=== PATIENT | female | born 1955 | race Caucasian/White ===

== ENCOUNTER 2017-03-06 15:23 | Inpatient (IN) | payer SELFPAY ==
--- NOTE | ~2017-03-06 | DS ---
Discharge Summary [facility] [address] [place]. [address] NAME: PATRICK WOODS : 53 STATUS : DIS IN PAT#: [id number] AGE: 61 ADM/REG DATE : 03/06/17 MR#: [id number] REPORT SERV DATE: 03/17/17 DICTATED BY: GUNNER OLIVAREZ DATE: 03/16/17 REPORT STATUS : Draft TRANSCRIBED BY: MODL DATE: 03/16/17 ADMISSION DATE: 03/06/2017 DISCHARGE DATE: 03/16/2017 CHIEF COMPLAINT ON ADMISSION: Third-degree heart block with syncopal episodes. DISCHARGE DIAGNOSES: 1. Third-degree heart block, status post placement of single ventricular chamber pacemaker with epicardial lead via subxiphoid approach by Dr. Montes. 2. Bilateral pleural effusion likely malignant. 3. Metastatic colon cancer with liver metastasis, progressive. 4. History of chronic obstructive pulmonary disease. 5. Acute hypoxic rest respiratory failure. 6. Atrial fibrillation. HISTORY OF PRESENT ILLNESS: Please see full H and P by Dr. Salomon regarding initial presentation. HOSPITAL COURSE: 1. Third-degree heart block. The patient was seen by Cardiology. Dr. Patterson initially saw, he did attempt to place a pacemaker; however, no subclavian access could be found. Dr. Montes then subsequently was consulted and placed a single ventricular chamber pacemaker with an epicardial lead via subxiphoid process. This was placed on the . She has had no further issues. Cardiology has followed along. 2. Metastatic colon cancer with liver metastasis and occlusion of the SVC. The patient was a possible candidate for outpatient p.o. chemotherapy; however, given the decline, Oncology as well as Cardiology had discussed hospice with Ms. Woods. Subsequently, she has agreed to home with hospice, and she will be discharged today with [facility]. 3. Bilateral pleural effusions. The patient has had bilateral thoracentesis. She had the left done yesterday and the right today. This has helped with her breathing. She had the left done on the with approximately 500 mL drained and the right today, also by physician mobile sales assistant, Mahesh Rosa, with 1.2 L of fluid drained off. Cytology is pending. At this time, if she should have recurrence, a PleurX catheter would be a good option. The left pleural fluid at this point is showing no malignancy. 4. History of atrial fibrillation. Continue metoprolol per [facility]. If needed, hospice will discontinue at their discretion. 5. Acute hypoxic respiratory failure. The patient has been requiring up to 6 L; however, after bilateral thoracentesis, she is down to 3 L. Hospice can monitor to see if oxygen needs to be titrated or additional thoracentesis/PleurX catheter as needed. DISPOSITION: Home with hospice. DISCHARGE MEDICATIONS: Per hospice. Time spent on discharge including discussion with the patient, Pulmonary Medicine, and Discharge Summary [address] [address] NAME: PATRICK WOODS : 53 STATUS : DIS IN PAT#: [id number] AGE: 61 ADM/REG DATE : 03/06/17 MR#: [id number] REPORT SERV DATE: 03/17/17 DICTATED BY: GUNNER OLIVAREZ DATE: 03/16/17 REPORT STATUS : Draft TRANSCRIBED BY: LEX DATE: 03/16/17 Hospice was greater than 30 minutes. DNK/MODL Gunner Olivarez MD / [id number] CC: MD Dr. Margarita Lawson
--- NOTE | ~2017-03-06 | OP ---
Record Of Operation [facility] [address] [place]. [address] NAME: PATRICK ZHOU : 53 STATUS : ADM IN PAT#: [id number] AGE: 61 ADM/REG DATE : 03/06/17 MR#: [id number] REPORT SERV DATE: 03/15/17 DICTATED BY: DINO VELEZ DATE: 03/15/17 REPORT STATUS : Draft TRANSCRIBED BY: MODL DATE: 03/15/17 DATE OF PROCEDURE: 03/15/2017 TIME: 10:30. PROCEDURE: Ultrasound-guided left-sided thoracentesis. INDICATION: Moderate left-sided pleural effusion. PROCEDURE TOWEL SORTER: Mahesh Velez PA-C. CONSENT: Consent was obtained from the patient prior to the procedure. Diagnostic and therapeutic indications for thoracentesis were discussed as well as risks including life- threatening bleeding, pneumothorax, and even the possible necessity of chest tube placement. Benefits and alternatives were explained at length. Prior to the procedure, imaging studies were reviewed with Dr. Mina who agreed with the indication to proceed with thoracentesis. Please note, Dr. Mina was present for the procedure. PROCEDURE SUMMARY: A time out was performed verifying correct patient, procedure, site, and positioning. The patient's left chest was prepped and draped in a sterile manner using chlorhexidine scrub after the appropriate level was percussed and confirmed by ultrasound. U/S images were obtained and placed within the chart. 2% lidocaine with epinephrine was then used to anesthetize the region. A finder needle was then used to aspirate straw- colored pleural fluid. A 10-blade scalpel was then used to make a small incision. The thoracentesis catheter was then threaded into the pleural space without difficulty. The patient had 500 mL of straw-colored fluid removed. No immediate complications were noted during the procedure. A post-procedure chest x-ray is pending at the time of this dictation. The fluid will be sent for several studies. The right side of the chest was ultrasounded as well with a larger effusion noted. She is tentatively planned for PleurX catheter placement tomorrow. ESTIMATED BLOOD LOSS: Minimal. GBS/MODL Dino Velez PA-C / [id number] CC: MD Rad Lawson Mary Christy
--- NOTE | ~2017-03-06 | OP ---
Record Of Operation [facility] [address] [place]. [address] NAME: PATRICK ZHOU : 53 STATUS : ADM IN PAT#: [id number] AGE: 61 ADM/REG DATE : 03/06/17 MR#: [id number] REPORT SERV DATE: 03/09/17 DICTATED BY: BETZY PATTERSON DATE: 03/07/17 REPORT STATUS : Draft TRANSCRIBED BY: LEX DATE: 03/07/17 DATE OF PROCEDURE: 03/07/2017 The patient is a 61-year-old white female with transient complete heart block who has occluded subclavian veins. Because of this, we attempted a retrograde approach. The patient was prepped and draped in the usual sterile fashion. 1% lidocaine was infiltrated to the left groin. A Preface sheath and dilator were advanced to the right atrium. A wire was advanced to the superior vena cava. The sheath and dilator followed the wire retrograde. At 4 cm above the right atrial roof, contrast was injected. There was a small stub going off to the right axillary vein. There was no stub or nipple going to the left axillary system. Despite multiple attempts and views, no subclavian access could be found. The Preface sheath was exchanged for a short sheath. The patient was discharged to cardiac care unit in stable condition. Options include a subxiphoid single lead approach. Further discussions to be had with her oncologist and Dr. Dave. RAMIRO/LEX Betzy Patterson M.D. / [id number] CC: Senait Harmon IV [facility]
--- NOTE | ~2017-03-06 | HP ---
History And Physical [place] [id number] [facility] [place]. [address] NAME: PATRICK WOODS : 53 STATUS : ADM IN PAT#: [id number] AGE: 61 ADM/REG DATE : 03/06/17 MR#: [id number] REPORT SERV DATE: 03/07/17 DICTATED BY: JESSICA SALOMON IV DATE: 03/06/17 REPORT STATUS : Draft TRANSCRIBED BY: LEX DATE: 03/06/17 DATE OF ADMISSION: 03/06/2017 REPORT TITLE: Critical Care Admission Note BODY AFTER REPORT TITLE: Time seen is 1919 to 2019, for 1 hour critical care time. History was obtained from the records and from the patient. HISTORY OF PRESENT ILLNESS: Ms. Woods is a 61-year-old female with a history of stage IV colon cancer, coronary disease, hypertension, elevated cholesterol, clinical COPD, and clinical obstructive sleep apnea who was admitted with third-degree heart block, with syncopal episodes. The patient was in her normal state of health until 10:30 this morning, when she developed acute onset of lightheadedness with syncope. There was no seizure activity reported by the . She continued to breathe though did have somewhat sonorous breathing. This lasted for 1-2 minutes. The patient has been intermittently short of breath since that period of time. She had multiple additional episodes in transit and has had several in the emergency room. Emergency room contacted [facility] Cardiology who recommend placing the patient on a dopamine drip. On that, she had some episodes of symptoms that are non captured as the pauses; however, did have one when being evaluated by Dr. Dave with P waves though no conducted rhythm and no QRS complexes. The patient has complained of being weak. She was recently hospitalized for urinary tract infection and is completing antibiotics. There are no other new medications. She had no nausea, vomiting, or episodes occurring at the time of periods of which could have been high vagal tone. She is not on supplemental oxygen nor is she on bronchodilator medications. She currently is not having any fevers, chills, sweats, or hemoptysis. She had no reports of chest pain though did have coronary disease in the past requiring 2 stents. The patient reportedly snores and her has witnessed apneic episodes. She basically sleeps on and off all day and complains of sedentary hypersomnolence and non restorative sleep. PULMONARY HISTORY: Remarkable for no history of childhood asthma, known adult obstructive lung disease or previous pneumonia. She has a 30 pack year smoking history, and quit in 1999. 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 She is up to date on both pneumococcal vaccinations as well as the seasonal influenza vaccine. PAST MEDICAL HISTORY: 1. Colon cancer. 2. Hypertension. 3. Coronary disease. 4. Elevated cholesterol. PAST SURGICAL HISTORY: She has had 2 ports placed which were removed because of clotting. She had cardiac stents in 2010. She had a partial colectomy, total abdominal hysterectomy, tonsillectomy, and adenoidectomy, and repair of a left retinal detachment. ALLERGIES: NO KNOWN DRUG ALLERGIES. History And Physical [address] [address] NAME: PATRICK WOODS : 53 STATUS : ADM IN [facility]#: [id number] AGE: 61 ADM/REG DATE : 03/06/17 MR#: [id number] REPORT SERV DATE: 03/07/17 DICTATED BY: JESSICA SALOMON IV DATE: 03/06/17 REPORT STATUS : Draft TRANSCRIBED BY: LEX DATE: 03/06/17 CURRENT MEDICATIONS: She is on aspirin 81 mg daily, B complex vitamins daily, Ceftin 500 mg twice a day, Dilaudid 8-16 mg every 4 hours as needed, lisinopril 10 mg every morning, multivitamin daily, Nitrostat p.r.n., pravastatin 20 mg at bedtime, Compazine p.r.n., Zantac 150 mg p.r.n., Brilinta 90 mg twice a day, and chemotherapy every 7 days. SOCIAL HISTORY: Remarkable for the tobacco use as above. There is no alcohol or illicit drug use. She is and has one child. FAMILY HISTORY: Remarkable for mother with hypertension, diabetes mellitus, stroke, congestive heart failure, and chronic atrial fibrillation. Father with prostate cancer, glaucoma, and hypertension and a brother with congestive heart failure, stroke, hypertension, and coronary artery disease. REVIEW OF SYSTEMS: 14 systems reviewed. Pertinent positives as noted above. PHYSICAL EXAMINATION: GENERAL: This is an elderly female, appearing older than her stated age. Responsive though somewhat lethargic. VITAL SIGNS: At time of my evaluation, pulse was 82, temperature is 98.2, blood pressure was 122/74, respiratory rate was 16, saturations were 99% on 2 L via nasal cannula. HEENT: Normocephalic, atraumatic. Extraocular movements are intact. Pupils react to light. Sclerae and conjunctivae normal. She has nasal cannula in place. She has a Mallampati 3 airway with marked narrowing of the posterior pharyngeal space. She is edentulous. Neck is without any palpable lymphadenopathy or thyromegaly. CHEST: The patient has few basilar inspiratory crackles. No wheezes or rhonchi are noted. CARDIOVASCULAR: Jugular venous pulsations are 6 cm. She has a currently irregular S1, S2 with no clear murmur or S3. Peripheral pulses are diminished. Carotid upstrokes are 1+ with no bruit. ABDOMEN: Surgical scars are noted. Soft, nontender. There are hypoactive bowel sounds. There is no palpable hepatosplenomegaly or mass. GENITOURINARY: The patient has normal female external genitalia. Fitzpatrick catheter in place. EXTREMITIES: Demonstrate a PICC line in the left upper extremity. There is no cyanosis, clubbing, or palpable cords. Lower extremities are cool to palpation with no cyanosis. NEUROLOGIC: The patient is able to move all extremities. Strength is 5-/5 and symmetric and sensation is intact to light touch. LABORATORY DATA: Chemistry: Sodium 142, potassium 3.5, chloride 106, bicarb 24, BUN 9, creatinine 0.52, glucose of 104, calcium is 8.5, magnesium is 1.7, total protein is 6.6, and albumin is 2.4. Direct bilirubin is 0.3, indirect bilirubin is 0.6, alkaline phosphatase is 170, ALT is 24, AST is 69, troponin is 0.05. BNP is 151, hemoglobin is 13.3, hematocrit 40.6, platelet count was 195,000, white blood cell count is 6.7. Urinalysis is unremarkable. Chest x-ray demonstrates hypoventilatory film. PICC line goes to the aortic knob; however, it is stable and was felt to be in an apparent accessory superior vena cava. There is increased interstitial markings with what History And Physical [address] [address] NAME: PATRICK WOODS : 53 STATUS : ADM IN [facility]#: [id number] AGE: 61 ADM/REG DATE : 03/06/17 MR#: [id number] REPORT SERV DATE: 03/07/17 DICTATED BY: JESSICA SALOMON IV DATE: 03/06/17 REPORT STATUS : Draft TRANSCRIBED BY: LEX DATE: 03/06/17 appears to be small pleural effusions. ASSESSMENT AND PLAN: 1. Cardiovascular. The patient is currently on dopamine drip which improved symptoms; however, has had a recurrent episode while being examined by Dr. Dave. The patient will go to the laborer petroleum refinery at night for temporary pacemaker. Echocardiogram will be obtained in the morning. Serial enzymes will be obtained. 2. Respiratory. Oxygen will be titrated to maintain saturations in the 90% to 94% range. Blood gas will be obtained. Albuterol will be given as needed with old CT scan demonstrating emphysema at the bases. X-ray will be obtained in the morning. 3. Renal. We will place the patient on potassium and magnesium. Phosphate level will be obtained. Electrolyte replacement protocol has been ordered. 4. Infectious Disease. Urine is clean; however, we will check blood cultures and complete the Ceftin. Florastor will be given. 5. Gastrointestinal. Protonix to be given for gastrointestinal prophylaxis n.p.o. for the procedure tonight. 6. Hematologic. Heparin or Lovenox will be started in the morning or after procedures. 7. Endocrinologic. Thyroid functions will be obtained. 8. Neurologic. Dilaudid dose will be decreased. IV will be given as needed. Syncope appears to be cardiac with no seizures. 9. Social. The patient wishes to be a do not intubate; however, does want all of resuscitative measures. The family was present as says this is in keeping with her wishes. The patient will be admitted to the ICU. Cardiology already has seen the patient. We will continue to follow. ADRIEN/LEX Jessica Salomon IV, M.D. / [id number] CC: Jessica Salomon IV, M.D.
--- NOTE | ~2017-03-06 | OP ---
Record Of Operation [facility] [address] [place]. [address] NAME: PATRICK ZHOU : 53 STATUS : ADM IN PAT#: [id number] AGE: 61 ADM/REG DATE : 03/06/17 MR#: [id number] REPORT SERV DATE: 03/16/17 DICTATED BY: DINO VELEZ DATE: 03/16/17 REPORT STATUS : Draft TRANSCRIBED BY: MODL DATE: 03/16/17 DATE OF PROCEDURE: 03/16/2017 PROCEDURE: Ultrasound guided right-sided thoracentesis. INDICATION: [id number] right-sided pleural effusion. PROCEDURE COLLATERAL SPECIALIST: Mahesh Velez PA-C. CONSENT: Consent was obtained from the patient prior to the procedure. Diagnostic and therapeutic indications for thoracentesis were discussed as well as risks including life- threatening bleeding, pneumothorax, and even the possible necessity of chest tube placement. Benefits and alternatives were explained at length. Prior to the procedure, imaging studies were reviewed with Dr. Mina who agreed with the indication to proceed with thoracentesis. Dr. Mina was present for the procedure. PROCEDURE SUMMARY: A time out was performed verifying correct patient, procedure, site, and positioning. The patient's right chest was prepped and draped in a sterile manner using chlorhexidine scrub after the appropriate level was percussed and confirmed by ultrasound. U/S images were obtained and placed within the chart. 2% lidocaine with epinephrine was then used to anesthetize the region. A finder needle was then used to aspirate straw-colored fluid. A 10-blade scalpel was then used to make a small incision. The thoracentesis catheter was then threaded into the pleural space without difficulty. The patient had 1.2 L straw- colored fluid removed. No immediate complications were noted during the procedure. A post- procedure chest x-ray is pending at the time of this dictation. The fluid will be sent for several studies. ESTIMATED BLOOD LOSS: Minimal. GBS/MODL Dino Velez PA-C / [id number] CC: MD BARNEY Lawson,JES AKBAR
--- NOTE | ~2017-03-06 | CN ---
Consultation Report [facility] [address] [place]. [address] NAME: PATRICK ZHOU : 53 STATUS : ADM IN PAT#: [id number] AGE: 61 ADM/REG DATE : 03/06/17 MR#: [id number] REPORT SERV DATE: 03/10/17 DICTATED BY: CHEMO JAMES DATE: 03/10/17 REPORT STATUS : Draft TRANSCRIBED BY: MODL DATE: 03/10/17 CONSULTATION DATE OF CONSULTATION: 03/10/2017 CHIEF COMPLAINT: "I need a pacemaker". HISTORY OF PRESENT ILLNESS: This is a 61-year-old white female, who was diagnosed with secondary malignant neoplasm of liver and intrahepatic bile duct, on 10/14/2015, and malignant colon cancer on 01/05/2015, at that time, stage CRISTAL or T3 N2 M1a. She has been treated with chemotherapy and her medical oncologist is Dr. Milton. She has had progression of her disease despite chemotherapy and has hypercoagulability, treated with Brilinta. On 03/06/2017, she had syncopal episodes at home and was brought to the emergency department. In the emergency department, she had multiple episodes of complete heart block with ventricular asystole documented. This was treated with dopamine intravenous infusion, and she then had a temporary transvenous pacer placed by Dr. Patterson. Pacer rate is currently set at 40, and she has intrinsic sinus rhythm of 70s to 100s. She has thrombosed her central venous access and attempts were made to access the central circulation for permanent pacemaker without success. We were asked to see to provide surgical placement of single lead pacer wire and pacemaker. This was discussed with she and her family today. She has had imaging studies during this hospitalization that demonstrated progression of disease with lesions throughout the abdomen, chest, and liver. She has been seen by Dr. Batres with [facility], also by Palliative Care, and both she and her family want to be aggressive with having a pacemaker placed and she has declined palliative or hospice care as well as do not resuscitate order. PRIOR MEDICAL HISTORY: 1. Colon cancer, stage IV. 2. Coronary artery disease. 3. Hypercoagulability, has been on Brilinta. 4. Hypertension. 5. Hyperlipidemia. 6. Rosacea. 7. Chronic pain. 8. Anxiety. 9. Depression. 10.History of cataracts, status post resection. 11.History of cigarette smoking, quit in 1999. PRIOR SURGICAL HISTORY: Previous PCI with stent, status post colorectal resection, previous appendectomy, and previous hysterectomy. Prior placement of Port-A-Cath in both subclavian veins, with thrombosis and removal. Consultation Report [facility] [id number] [place]. [address] NAME: PATRICK ZHOU : 53 STATUS : ADM IN PAT#: [id number] AGE: 61 ADM/REG DATE : 03/06/17 MR#: [id number] REPORT SERV DATE: 03/10/17 DICTATED BY: CHEMO JAMES DATE: 03/10/17 REPORT STATUS : Draft TRANSCRIBED BY: LEX DATE: 03/10/17 ALLERGIES: NONE KNOWN. MEDICATIONS: Include Ceftin, Lovenox last dose at 06:00 a.m. this morning, Prinivil, Theragran tabs, Bactroban nasal ointment, Protonix, MiraLAX, Pravachol, Florastor, Stresstabs, Dilaudid p.r.n., Tylenol as needed, and electrolyte replacement therapy as needed. She is also on DuoNeb inhalers. FAMILY HISTORY: Mother with hypertension, diabetes, stroke, CHF, and chronic atrial fibrillation. Father had prostate cancer, glaucoma, hypertension. Brother with congestive heart failure, stroke, hypertension, coronary artery disease. SOCIAL HISTORY: She is , has one child, denies the use of alcohol or illicit drugs. She is a former smoker, quit in the year 1999. REVIEW OF SYSTEMS: Significant for shortness of breath, oxygen use, chronic pain, malaise, and recent syncope. PHYSICAL EXAMINATION: GENERAL: She is a pleasant elderly white female, appears older than chronological age. Her height is 162.56 cm, weight is 58.79 kg. VITAL SIGNS: As follows, blood pressure is 139/65, temperature 98.6, pulse is 80, respirations 21, saturation 95%. HEENT: Normocephalic, atraumatic. Pupils irregular, reactive to light and accommodation, sclerae clear, conjunctivae pink. She has flushed facies. NECK: Supple. No restricted range of motion. CHEST: Diminished breath sounds in the bases. She is mildly short of breath at rest. CV: Regular rate and rhythm without murmur or rub. She has palpable symmetric central pulses. She has peripheral pulses. ABDOMEN: Soft, obese, nontender with normoactive bowel sounds. /RECTAL: Declined. MUSCULOSKELETAL: No obvious deformity. No kyphosis or scoliosis. NEUROLOGIC: She is alert and oriented to day, date, place, and situation, speech is clear, fluent, and no focal deficits. DATA: Telemetry strips from the emergency department, which demonstrated ventricular asystole and complete heart block. EKG shows currently normal sinus rhythm. CT chest and abdomen and pelvis show large bilateral pleural effusions, right greater than left with compressive atelectasis involving the majority of the lower lobes of both lungs, with also consolidation atelectasis and posterior right upper lobe. There is a new 8 x 8 mm noncalcified nodule in the anterior right upper lobe since 05/11/2015, which may represent metastatic lesion or be infectious and/or inflammatory. There was also bulky mediastinal lymphadenopathy since 04/2015 likely representing metastatic disease. 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. [address] NAME: PATRICK ZHOU : 53 STATUS : ADM IN [facility]#: [id number] AGE: 61 ADM/REG DATE : 03/06/17 MR#: [id number] REPORT SERV DATE: 03/10/17 DICTATED BY: CHEMO JAMES DATE: 03/10/17 REPORT STATUS : Draft TRANSCRIBED BY: LEX DATE: 03/10/17 due to central venous occlusions or stenoses on the right, pacer lead in place entering via right common femoral vein access and multiple bilateral thyroid nodules likely related to multinodular goiter. Central venous ultrasound on the showed chronic thrombus occluding the right internal jugular vein, partial occlusion of the right subclavian vein and right axillary vein with chronic thrombus and possible acute thrombus superimposed on chronic thrombus. Echocardiogram dated 03/07/[address] Horne shows ejection fraction estimated at 55% with normal right ventricular and left ventricular sizes and systolic function. There is normal left atrial size, no significant valvulopathy and trace pericardial effusion. CURRENT LABORATORY DATA: Sodium is 147, potassium 3.4, chloride 112, CO2 of 25, BUN 8, creatinine 0.49. CBC shows WBCs of 7000, hemoglobin 12.5g, hematocrit 38.4%, platelets 191,000. IMPRESSION: 1. Intermittent complete heart block with ventricular asystole, documented at admission. 2. Lack of central venous access despite attempts at placement of permanent pacer lead. 3. Hypercoagulability. 4. Stage IV metastatic colon cancer. PLAN: Discussed with the patient and her family at length today, and she wants to proceed with a pacemaker placement and is willing to undergo surgery for placement of pacer lead via either a subxiphoid approach or left thoracoscopy or thoracotomy. 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 Patterson, his view would be towards a palliative approach with a single lead if possible, however, if left thoracoscopic or thoracotomy approach becomes necessary, then could consider dual-chamber pacer lead placement. I talked at length with the patient and her family today regarding the surgery, usual perioperative course, and risks inherent to the procedure, which include risks of bleeding, infection, pneumonia, blood transfusions, further damage to liver or lungs, wound nonhealing, pain, and possible prolonged hospitalization. She understands that her oncologist has given her a prognosis of two to three months to live, and despite this, we would like to proceed with aggressive care and placement of pacemaker. I have scheduled surgery for pacemaker and lead implantation this afternoon by Dr. Montes. We appreciate the opportunity to participate in her care. HESHAM/LEX Chemo James N.P. / [id number] Consultation Report [address] [address] NAME: PATRICK ZHOU : 53 STATUS : ADM IN [facility]#: [id number] AGE: 61 ADM/REG DATE : 03/06/17 MR#: [id number] REPORT SERV DATE: 03/10/17 DICTATED BY: CHEMO JAMES DATE: 03/10/17 REPORT STATUS : Draft TRANSCRIBED BY: MODZack DATE: 03/10/17 CC: Senait Harmon IV
--- NOTE | ~2017-03-06 | OP ---
Record Of Operation [facility] [address] [place]. [address] NAME: PATRICK ZHOU : 53 STATUS : ADM IN PAT#: [id number] AGE: 61 ADM/REG DATE : 03/06/17 MR#: [id number] REPORT SERV DATE: 03/11/17 DICTATED BY: DANK MONTES DATE: 03/11/17 REPORT STATUS : Draft TRANSCRIBED BY: MODL DATE: 03/11/17 DATE OF PROCEDURE: 03/11/2017 DIAGNOSIS: 1. Third degree AV block with symptomatic bradycardia. 2. 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 PROCEDURE PERFORMED: 1. Placement of single ventricular chamber pacemaker. 2. Placement of epicardial lead via the subxiphoid approach. SURGEON: Dank Montes M.D. CATALYTIC CASE OPERATOR: Williams Ahmadi. ANESTHESIA: General. HULL MOLDER: Dr. Michael Patterson. INDICATIONS: This is a 61-year-old female with stage IV colon cancer and multiple metastatic lesions in the liver and mediastinum. She has symptoms of SVC syndrome. She also has metastatic disease in the lung. She recently had a syncopal episode at home and came to the emergency room on the of this month. In the emergency room, she was noted to have episodes of complete third-degree AV block with severe bradycardia. She had a temporary transvenous pacemaker placed at that time. She was placed in the unit. The patient had been on Brilinta for hypercoagulability related to tumor. Dr. Patterson attempted to place a transvenous pacemaker, I believe, on the of this month but could not pass through the obstruction and the SVC. We were asked to consider placement of an epicardial pacing lead with single chamber pacemaker. Palliative Care was consulted; however, the patient desired full resuscitative measures and pacemaker "because she had things to do before ." We discussed possible epicardial pacemaker placement through a subxiphoid approach and after discussing the operations, indications, and risks, they wished to proceed. FINDINGS AT OPERATION: 1. The pacemaker was a Medtronic Adapta ADSRO1 serial number [id number]. 2. The ventricular lead was a Medtronic model #4965. Serial number [id number]. R-waves measured were 3.5 mV. Impedance was 503 ohms. Minimal voltage at capture is 0.7 V. 3. Pacemaker was placed in the subcutaneous space above the left side of the rectus muscle. 4. Temporary transvenous pacemaker through the end of the case. PATHOLOGIC SPECIMENS: None. DESCRIPTION OF PROCEDURE: The patient was brought to the operating suite. General anesthesia was induced. The airway secured with an endotracheal tube. Abdomen and chest were prepped with Hibiclens and ChloraPrep and draped with Ioban and sterile sheets. Midline Record Of Operation [facility] [id number] [place]. [address] NAME: PATRICK ZHOU : 53 STATUS : ADM IN PAT#: [id number] AGE: 61 ADM/REG DATE : 03/06/17 MR#: [id number] REPORT SERV DATE: 03/11/17 DICTATED BY: DANK MONTES DATE: 03/11/17 REPORT STATUS : Draft TRANSCRIBED BY: LEX DATE: 03/11/17 upper abdominal incision was made directly over the xiphoid for approximately 6 cm and carried through the subcutaneous tissue down to the level of the xiphoid. Linea alba was divided for several centimeters below the xiphoid. We then went between the xiphoid and right costal margin. The pericardial fat was swept aside. The pericardium was identified. A small incision was made in the pericardium, and retraction sutures were placed. Then an epicardial lead was sewn to the heart with 6-0 Prolene sutures. This was tested as described in the findings. With acceptable thresholds for the pacing lead, a subcutaneous pocket was made above the left side of the rectus muscle. The pacemaker lead was connected to the pacemaker which was implanted in the pocket and secured to the rectus fascia with a silk suture. The wound was then irrigated clear with saline and hemostasis obtained. The wound was closed with absorbable sutures. The subcutaneous tissue was closed and skin closed in a subcuticular fashion. Intercostal block and field block performed using the TAP solution. A 19 mm Shane drain was placed in the pericardial space and brought through a separate stab incision prior to closure. The patient tolerated the procedure well. There were no complications. Sponge and needle counts were correct. DISPOSITION: She was awakened and extubated in the operating room and taken to the recovery room in stable condition. Temporary transvenous pacemaker was removed in the operating suite. TIMMY/LEX Dank Montes M.D. / [id number] CC: Senait Harmon IV, M.D.
--- NOTE | ~2017-03-06 | CN ---
Consultation Report [facility] [address] [place]. [address] NAME: PATRICK ZHOU : 53 STATUS : ADM IN PAT#: [id number] AGE: 61 ADM/REG DATE : 03/06/17 MR#: [id number] REPORT SERV DATE: 03/07/17 DICTATED BY: BETZY PATTERSON DATE: 03/07/17 REPORT STATUS : Draft TRANSCRIBED BY: MODL DATE: 03/07/17 EP CONSULTATION DATE OF CONSULTATION: INDICATION: Third-degree AV block. HISTORY: The patient is a 61-year-old white female who has had recurrent episodes of syncope over the past two days. She passed out while her sister was taking her to the emergency room and again passed out in the ER. She was initially started on dopamine and had a temporary pacing wire placed 03/06 at 9:[address] Barbosa. She has been stable since that time. The patient has had no prior cardiac history. She does have dyslipidemia and hypertension. CURRENT HOME MEDICATIONS: Aspirin 81 a day, B Complex vitamins daily, Ceftin 500 b.i.d. x5 days, Dilaudid 8 mg q.4 p.r.n., lisinopril 10 q.a.m., multivitamins daily, nitroglycerin 0.4 p.r.n., pravastatin 20 at bedtime, prochlorperazine 10 q.6 p.r.n., Zantac 150 p.r.n., ticagrelor 90 b.i.d., and chemotherapy one dose every seven days administered by Dr. Milton in [facility]. ALLERGIES OR INTOLERANCES: None known. SOCIAL HISTORY: Former smoker. Does not drink alcohol. She had a 30-pack year smoking history, quit in 1999. 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 FAMILY HISTORY: Negative for coronary artery disease at a young age. Maternal grandmother at age 60 with cancer of the lymph nodes. Maternal grandfather at age 80 of coronary artery disease. Paternal grandmother at age 80 with diabetes. Her paternal grandfather had also had congestive heart failure. PAST MEDICAL HISTORY/REVIEW OF SYSTEMS: Recently diagnosed with stage IV colon cancer for which she has been undergoing chemotherapy for the past 18 months. A week ago she was seen at [facility] with a UTI, given IV fluids, and discharged to home. She had felt fatigued and then had the syncopal events as documented above. She has a history of coronary artery disease with previous stenting in 2010, hyperlipidemia, stage IV colon cancer as noted above. She has had Port-A-Cath in both subclavian veins, which have malfunctioned and been surgically removed. It is not clear as to whether not the subclavian veins have been occluded, although she does not report any swelling in her arms. PAST SURGICAL HISTORY: She has had a partial colectomy, ANTONIA, tonsillectomy and adenoidectomy. She has had repair of a left retinal detachment in the past. Her Consultation Report [facility] [id number] [facility] [place]. [address] NAME: PATRICK ZHOU : 53 STATUS : ADM IN [facility]#: [id number] AGE: 61 ADM/REG DATE : 03/06/17 MR#: [id number] REPORT SERV DATE: 03/07/17 DICTATED BY: BETZY PATTERSON DATE: 03/07/17 REPORT STATUS : Draft TRANSCRIBED BY: LEX DATE: 03/07/17 adenocarcinoma had a KRAS mutation. The sigmoid was resected by Dr. Chamorro. She had 4/11 nodes positive and negative margins. On 11/28/2014, she was noted to have a 4 x 5 cm liver mass, which tested positive for metastatic CRC. She had been on FOLFOX, Avastin, but this was stopped due to neuropathy. Hilar and mediastinal adenopathy has been stable. Oxaliplatin was discontinued on 05/13/2015 due to neuropathy. She has been on Neurontin since then. She has a history of Parkinson syndrome, is on carbidopa-levodopa. She has normal renal function. She has undergone hepatic embolization with Y-[address] Monsalve. She had a PICC line placed 12/28/2016. PHYSICAL EXAMINATION: GENERAL: Pleasant, alert 61-year-old white female. VITAL SIGNS: On admission, blood pressure 146/67, pulse after treatment was 95 and regular, respirations 14. SKIN: No xanthelasmas. HEENT: She is normocephalic. There is no pallor. Sclerae white. JVD is not elevated. CHEST: There are no crackles. CARDIAC: S1 normal, S2 physiologic. No murmurs or gallops. ABDOMEN: Without tenderness. EXTREMITIES: Without edema. Pulses are +2 and symmetric. NEUROLOGIC: No focal deficits. MUSCULOSKELETAL: No kyphosis. LABORATORY DATA: Potassium 3.1, BUN 6, creatinine 0.43, magnesium 2.1. Troponin 0.06, initially 0.08. TSH 0.236 with normal free T4. BNP 151. White count 9.3, hemoglobin 13.5, platelets 199,000. Baseline ECG. Rhythm strips show intermittent complete heart block with asystole. During conducted complexes, there is no evidence for acute repolarization changes. IMPRESSION: A 61-year-old white female with multiple medical issues, now presenting with complete heart block, possible subclavian occlusion based on history. She will need permanent pacemaker support. I have discussed risks and benefits with her and will speak with her . RAMIRO/LEX Betzy Patterson M.D. / [id number] CC: Epifanio Salomon IV, M.D. BARNEYJES Jeong Consultation Report [address] [place]. [address] NAME: PATRICK ZHOU : 53 STATUS : ADM IN [facility]#: [id number] AGE: 61 ADM/REG DATE : 03/06/17 MR#: [id number] REPORT SERV DATE: 03/07/17 DICTATED BY: BETZY PATTERSON DATE: 03/07/17 REPORT STATUS : Draft TRANSCRIBED BY: LEX DATE: 03/07/17 [facility]
--- NOTE | ~2017-03-06 | CN ---
Consultation Report [facility] [address] [place]. [address] NAME: PATRICK WOODS : 53 STATUS : ADM IN PAT#: [id number] AGE: 61 ADM/REG DATE : 03/06/17 MR#: [id number] REPORT SERV DATE: 03/07/17 DICTATED BY: EFRAIN SHEARER DATE: 03/06/17 REPORT STATUS : Draft TRANSCRIBED BY: MODL DATE: 03/06/17 DATE OF CONSULTATION: 03/06/2017 CHIEF COMPLAINT: Syncope, third-degree AV block. HISTORY OF PRESENT ILLNESS: Ms. Woods is a 61-year-old woman with a history of coronary disease and prior stents in 2010. Uncertain the details of her cardiovascular history. She is still on Brilinta. Most importantly, recently, she was diagnosed with stage IV colon cancer, undergoing chemotherapy for about a year and a half. She was admitted last week to [facility] with a UTI, given IV fluids, and was discharged on Monday. She continued to feel poorly. She was fatigued. She had no energy. Today, she had a syncopal spell witnessed by her and was brought to the emergency room at [facility]. In the emergency room on telemetry, she had multiple episodes of third-degree heart block with subsequent syncope. One episode was witnessed by me in the emergency room while the patient was on an IV dopamine drip with profound third-degree AV block, syncope, seizure, and a long time before she spontaneously regained consciousness and QRS complexes reappeared. She has not had any chest pain. ALLERGIES: NO KNOWN DRUG ALLERGIES. MEDICATIONS: Include aspirin 81 mg daily, multivitamin, Ceftin, Dilaudid, Prinivil 10 mg daily, nitroglycerin as needed, Pravachol 20 mg daily, Compazine, Zantac, Brilinta 90 mg twice a day, calcium, and chemotherapy agents. SOCIAL HISTORY: She is a former smoker. She does not drink alcohol. FAMILY HISTORY: There is no family history of early coronary artery disease. REVIEW OF SYSTEMS: A complete review of systems was obtained, which is negative in detail except as mentioned above in the HPI. PAST MEDICAL HISTORY: 1. Recent UTI. 2. Hypertension. 3. Coronary disease with previous stenting in 2010. 4. Hypercholesterolemia. 5. Stage IV colon cancer. PHYSICAL EXAMINATION: VITAL SIGNS: Blood pressure 120/70, heart rate of 70 and regular, and respiratory rate of 14. Consultation Report [facility] [id number] [place]. [address] NAME: PATRICK WOODS : 53 STATUS : ADM IN PAT#: [id number] AGE: 61 ADM/REG DATE : 03/06/17 MR#: [id number] REPORT SERV DATE: 03/07/17 DICTATED BY: EFRAIN SHEARER DATE: 03/06/17 REPORT STATUS : Draft TRANSCRIBED BY: LEX DATE: 03/06/17 GENERAL: Comfortable in no acute distress. HEENT: Anicteric. No xanthelasma. Lips without cyanosis. NECK: No JVD. Carotids 2+ and symmetric. No carotid bruits. LUNGS: CTA bilaterally. No wheezes or rhonchi. No accessory muscle use. COR: RRR. Normally placed PMI. Normal S1 and S2. No murmurs, rubs or gallops. ABD: Soft, nontender, nondistended. Normal bowel sounds. No abdominal bruits. EXT: No clubbing, cyanosis or edema 2+ and symmetric distal pulses. SKIN: Warm. Dry. No venous stasis changes. MS: No kyphosis. NEURO/PSYCH: Oriented x3. No anxiety or depression. DATA: Laboratory studies: BNP of 151, hematocrit of 40.6, platelets of 195, potassium of 3.9, creatinine of 0.52, and troponin of 0.05. EK-lead EKG shows sinus versus junctional rhythm, 90 beats per minute. Poor baseline tracing. Normal duration QRS. IMPRESSION: This is a 61-year-old woman with multiple episodes of syncope in the setting of third-degree AV block. One of these episodes occurred just recently on a dopamine drip. I have recommended emergent/urgent temporary pacing wire to be placed via femoral access in the laboratory [facility]. I explained this procedure including its risks and benefits in detail to the patient and her family who understand and wish to proceed. We will check an echocardiogram tomorrow. We will hold her Brilinta. We will consult Oncology tomorrow. Of note, the patient has had a Port-A-Cath in both subclavian areas which have either clotted or malfunctioned and have been surgically removed. This may make pacemaker placement difficult. ZOILA/LEX Efrain Shearer M.D. / [id number] CC: Senait Harmon IV, Christy Lipscomb
[~2017-03-06 15:23] MED LIST: ASAB PO; BRILINTA90 MG PO; PERCOCET1 TA4 PO; PRAVAC PO; PRIN20 PO
[2017-03-06 15:55] LABS: BASOPHILS 0.6 %; BASOPHILS ABSOLUTE 0.04 10/3/uL (0.0-0.16); EOSINOPHILS 0.2 %; EOSINOPHILS ABSOLUTE 0.01 10/3/uL (0.0-0.53); HEMATOCRIT 40.6 % (36.0-48.0); HEMOGLOBIN 13.3 g/dL (12.0-16.0); IMMATURE GRANULOCYTES 0.5 %; IMMATURE GRANULOCYTES ABSOLUTE 0.03 10/3/uL (0.0-0.11); LYMPHOCYTES 5.3 %; LYMPHOCYTES ABSOLUTE 0.35 10/3/uL (0.67-4.30); MANUAL DIFF NO %; MEAN CORPUS HGB CONC 32.8 g/dL (32.0-36.0); MEAN CORPUSCULAR HEMOGLOB 30.6 pg (26.0-34.0); MEAN CORPUSCULAR VOLUME 93.5 fL (80-100); MEAN PLATELET VOLUME 9.7 fL (9.2-13.0); MONOCYTES 6.8 %; MONOCYTES ABSOLUTE 0.45 10/3/uL (0.21-1.20); NEUTROPHILS 86.6 %; NEUTROPHILS ABSOLUTE 5.77 10/3/uL (2.02-8.40); PLATELET COUNT 195 10/3/uL (150-400); RBC DISTRIBUTION WIDTH 19.5 % (12.0-16.0); RED CELL COUNT 4.34 10/6/uL (4.0-5.6); WHITE BLOOD CELLS 6.7 10/3/uL (4.5-10.5)
[2017-03-06 16:07] LABS: INTERNATIONAL NORMAL RATI 1.2 UNITS (-); PARTIAL THROMBO TIME 26.3 SEC (22.5-37.2); PROTIME (NOT ORD) 15.2 SEC (12.0-14.5)
[2017-03-06 16:09] LABS: BUN (BLOOD UREA NITROGEN) 9 MG/DL (6-23); CALCIUM, SERUM 8.5 MG/DL (8.5-10.4); CHLORIDE, SERUM 106 MMOL/L (96-112); CO2 (CARBON DIOXIDE) 24 MMOL/L (24-34); CREATININE 0.52 MG/DL (0.55-1.02); GFR AFRICAN AMERICAN 119 ML/MIN (>=60); GFR NON AFRICAN AMERICAN 102 ML/MIN (>=60); POTASSIUM, SERUM 3.5 MMOL/L (3.5-5.3); SODIUM, SERUM 142 MMOL/L (135-148)
[2017-03-06 16:10] LABS: GLUCOSE, SERUM 104 MG/DL (60-99)
[2017-03-06 16:11] LABS: CHEST PAIN PROFILE TAT 0 Hrs 22 Mins; TROPONIN I 0.05 NG/ML (<0.05)
[2017-03-06 16:27] LABS: PLATELET ESTIMATE ADQ (ADEQUATE)
[2017-03-06 16:28] LABS: ANISOCYTOSIS 1+ (5-10/OIF) (0-5/OIF)
[2017-03-06 16:29] LABS: HYPOCHROMIA 1+ (3-10/OIF) (0-2/OIF)
[2017-03-06 17:49] LABS: ASCORBIC ACID (UR NOT ORDER) 40 (NEG); BILIRUBIN, URINE NEGATIVE (NEG); ER URINALYSIS TAT 0 Hrs 14 Mins; KETONE, URINE TRACE MG/DL (NEG); LEUKOCYTE ESTERASE(NOT OR NEG (NEG); NITRITE (URINE) NEG (NEG); WBC (NOT ORDERED) (RFLEX) < 1 (0-5)
[2017-03-06] MEDS ORDERED: HALF81 PO (18:33)
[2017-03-06] MEDS ORDERED: NITROSTAT0.4 MG SL (18:35)
[2017-03-06] MEDS ORDERED: CAL PO (18:35)
[2017-03-06] MEDS ORDERED: VITD PO (18:35)
[2017-03-06] MEDS ORDERED: MAG PO (18:35)
[2017-03-06] MEDS ORDERED: ZINC PO (18:35)
[2017-03-06] MEDS ORDERED: ZANTAC 150 PO (18:38)
[2017-03-06] MEDS ORDERED: VITAMIN B PO (18:38)
[2017-03-06] MEDS ORDERED: DILAUDID8 MG PO (18:39)
[2017-03-06] MEDS ORDERED: PRAVAC PO (18:40)
[2017-03-06] MEDS ORDERED: COMP10B PO (18:40)
[2017-03-06] MEDS ORDERED: MULTIVIT/MIN PO (18:40)
[2017-03-06] MEDS ORDERED: PRIN10 PO (18:40)
[2017-03-06] MEDS ORDERED: CEFT5 PO (18:41)
[2017-03-06] MEDS ORDERED: BRILINTA90 MG PO (18:41)
[2017-03-06] MEDS ORDERED: CHEMOTHERAPY IV (18:43)
[2017-03-06 18:47] LABS: DIRECT BILIRUBIN 0.3 MG/DL (0.0-0.4); INDIRECT BILIRUBIN(NOT ORDER) 0.6 MG/DL (0.1-0.9); TOTAL BILIRUBIN 0.9 MG/DL (0-1.2); TOTAL PROTEIN 6.6 G/DL (6.0-8.5)
[2017-03-06 18:49] LABS: ALBUMIN 2.4 G/DL (3.5-5.0)
[2017-03-06 23:17] LABS: FREE T4 1.6 NG/DL (0.76-1.46); PHOSPHORUS, SERUM 2.7 MG/DL (2.5-4.5); ULTRASENSITIVE TSH 0.236 MCIU/ML (0.358-3.740)
[2017-03-06 23:18] LABS: FOLATE 29.8 NG/ML (>5.2); TROPONIN I 0.08 NG/ML (<0.05)
[2017-03-06 23:21] LABS: PROCALCITONIN 0.31 ng/mL (<0.5)
[2017-03-07 07:33] LABS: BASOPHILS 0.3 %; BASOPHILS ABSOLUTE 0.03 10/3/uL (0.0-0.16); EOSINOPHILS 0.1 %; EOSINOPHILS ABSOLUTE 0.01 10/3/uL (0.0-0.53); HEMOGLOBIN 13.5 g/dL (12.0-16.0); IMMATURE GRANULOCYTES 0.3 %; IMMATURE GRANULOCYTES ABSOLUTE 0.03 10/3/uL (0.0-0.11); LYMPHOCYTES 10.6 %; LYMPHOCYTES ABSOLUTE 0.99 10/3/uL (0.67-4.30); MEAN CORPUS HGB CONC 33.8 g/dL (32.0-36.0); MEAN PLATELET VOLUME 9.9 fL (9.2-13.0); MONOCYTES 3.2 %; NEUTROPHILS 85.5 %; NEUTROPHILS ABSOLUTE 7.96 10/3/uL (2.02-8.40); PLATELET COUNT 199 10/3/uL (150-400); RBC DISTRIBUTION WIDTH 19.4 % (12.0-16.0); RED CELL COUNT 4.35 10/6/uL (4.0-5.6); WHITE BLOOD CELLS 9.3 10/3/uL (4.5-10.5)
[2017-03-07 07:38] LABS: MANUAL DIFF NO %
[2017-03-07 07:49] LABS: ALBUMIN 2.4 G/DL (3.5-5.0); BUN (BLOOD UREA NITROGEN) 6 MG/DL (6-23); CALCIUM, SERUM 8.3 MG/DL (8.5-10.4); CHLORIDE, SERUM 109 MMOL/L (96-112); CO2 (CARBON DIOXIDE) 25 MMOL/L (24-34); CREATININE 0.43 MG/DL (0.55-1.02); GFR AFRICAN AMERICAN 126 ML/MIN (>=60); GFR NON AFRICAN AMERICAN 109 ML/MIN (>=60); GLUCOSE, SERUM 85 MG/DL (60-99); PHOSPHORUS, SERUM 2.5 MG/DL (2.5-4.5); POTASSIUM, SERUM 3.1 MMOL/L (3.5-5.3); SODIUM, SERUM 146 MMOL/L (135-148); TROPONIN I 0.06 NG/ML (<0.05)
[2017-03-08 17:56] LABS: HEMATOCRIT 40.3 % (36.0-48.0); HEMOGLOBIN 13.2 g/dL (12.0-16.0); MEAN CORPUS HGB CONC 32.8 g/dL (32.0-36.0); MEAN CORPUSCULAR HEMOGLOB 30.6 pg (26.0-34.0); MEAN CORPUSCULAR VOLUME 93.5 fL (80-100); MEAN PLATELET VOLUME 10.6 fL (9.2-13.0); PLATELET COUNT 208 10/3/uL (150-400); RBC DISTRIBUTION WIDTH 20.8 % (12.0-16.0); RED CELL COUNT 4.31 10/6/uL (4.0-5.6); WHITE BLOOD CELLS 7.3 10/3/uL (4.5-10.5)
[2017-03-08 18:02] LABS: BUN (BLOOD UREA NITROGEN) 7 MG/DL (6-23); CALCIUM, SERUM 8.1 MG/DL (8.5-10.4); CHLORIDE, SERUM 111 MMOL/L (96-112); CO2 (CARBON DIOXIDE) 24 MMOL/L (24-34); GFR AFRICAN AMERICAN 120 ML/MIN (>=60); GFR NON AFRICAN AMERICAN 104 ML/MIN (>=60); PHOSPHORUS, SERUM 2.9 MG/DL (2.5-4.5); SODIUM, SERUM 146 MMOL/L (135-148)
[2017-03-08 18:03] LABS: GLUCOSE, SERUM 104 MG/DL (60-99); POTASSIUM, SERUM 4.2 MMOL/L (3.5-5.3)
[2017-03-08 18:10] LABS: MANUAL DIFF YES %
[2017-03-08 18:20] LABS: ANISOCYTOSIS 1+ (5-10/OIF) (0-5/OIF); BAND NEUTROPHILS 2 %; BASOPHILS 1 %; BASOPHILS ABSOLUTE (CALC) 0.07 10/3/uL (0.0-0.16); LYMPHOCYTES 2 %; LYMPHOCYTES ABSOLUTE (CALC) 0.15 10/3/uL (0.67-4.30); MONOCYTES 14 %; MONOCYTES ABSOLUTE (CALC) 1.02 10/3/uL (0.21-1.20); NEUTROPHILS ABSOLUTE (CALC) 6.06 10/3/uL (2.02-8.40); PLATELET ESTIMATE ADQ (ADEQUATE); SEGMENTED NEUTROPHIL (0) 81 %; TOTAL NUCLEATED CELLS 100
[2017-03-08 18:21] LABS: BURR CELLS 1+ (3-10/OIF) (0-2/OIF); SCHISTOCYTES OCC (0-2/OIF)
[2017-03-09 03:23] LABS: BASOPHILS 0.5 %; BASOPHILS ABSOLUTE 0.04 10/3/uL (0.0-0.16); EOSINOPHILS 1.4 %; EOSINOPHILS ABSOLUTE 0.11 10/3/uL (0.0-0.53); HEMATOCRIT 39.1 % (36.0-48.0); HEMOGLOBIN 13.2 g/dL (12.0-16.0); IMMATURE GRANULOCYTES 0.3 %; IMMATURE GRANULOCYTES ABSOLUTE 0.02 10/3/uL (0.0-0.11); LYMPHOCYTES 9.6 %; LYMPHOCYTES ABSOLUTE 0.75 10/3/uL (0.67-4.30); MANUAL DIFF NO %; MEAN CORPUS HGB CONC 33.8 g/dL (32.0-36.0); MEAN CORPUSCULAR HEMOGLOB 31.5 pg (26.0-34.0); MEAN CORPUSCULAR VOLUME 93.3 fL (80-100); MEAN PLATELET VOLUME 10.6 fL (9.2-13.0); MONOCYTES 8.6 %; MONOCYTES ABSOLUTE 0.67 10/3/uL (0.21-1.20); NEUTROPHILS 79.6 %; NEUTROPHILS ABSOLUTE 6.19 10/3/uL (2.02-8.40); PLATELET COUNT 209 10/3/uL (150-400); RBC DISTRIBUTION WIDTH 20.9 % (12.0-16.0); RED CELL COUNT 4.19 10/6/uL (4.0-5.6); WHITE BLOOD CELLS 7.8 10/3/uL (4.5-10.5)
[2017-03-09 03:42] LABS: BUN (BLOOD UREA NITROGEN) 6 MG/DL (6-23); CALCIUM, SERUM 8.1 MG/DL (8.5-10.4); CHLORIDE, SERUM 113 MMOL/L (96-112); CO2 (CARBON DIOXIDE) 24 MMOL/L (24-34); CREATININE 0.49 MG/DL (0.55-1.02); GFR AFRICAN AMERICAN 121 ML/MIN (>=60); GFR NON AFRICAN AMERICAN 104 ML/MIN (>=60); GLUCOSE, SERUM 90 MG/DL (60-99); PHOSPHORUS, SERUM 3.6 MG/DL (2.5-4.5); POTASSIUM, SERUM 3.9 MMOL/L (3.5-5.3); SODIUM, SERUM 148 MMOL/L (135-148)
[2017-03-10 04:09] LABS: BASOPHILS 0.6 %; BASOPHILS ABSOLUTE 0.04 10/3/uL (0.0-0.16); EOSINOPHILS 3.6 %; EOSINOPHILS ABSOLUTE 0.25 10/3/uL (0.0-0.53); HEMATOCRIT 38.4 % (36.0-48.0); HEMOGLOBIN 12.5 g/dL (12.0-16.0); IMMATURE GRANULOCYTES 0.3 %; IMMATURE GRANULOCYTES ABSOLUTE 0.02 10/3/uL (0.0-0.11); MEAN CORPUS HGB CONC 32.6 g/dL (32.0-36.0); MEAN CORPUSCULAR HEMOGLOB 30.7 pg (26.0-34.0); MEAN CORPUSCULAR VOLUME 94.3 fL (80-100); NEUTROPHILS 75.5 %; NEUTROPHILS ABSOLUTE 5.29 10/3/uL (2.02-8.40); PLATELET COUNT 191 10/3/uL (150-400); RBC DISTRIBUTION WIDTH 21.2 % (12.0-16.0); RED CELL COUNT 4.07 10/6/uL (4.0-5.6)
[2017-03-10 04:10] LABS: MANUAL DIFF NO %
[2017-03-10 04:23] LABS: BUN (BLOOD UREA NITROGEN) 8 MG/DL (6-23); CALCIUM, SERUM 7.8 MG/DL (8.5-10.4); CHLORIDE, SERUM 112 MMOL/L (96-112); CO2 (CARBON DIOXIDE) 25 MMOL/L (24-34); CREATININE 0.49 MG/DL (0.55-1.02); GFR AFRICAN AMERICAN 121 ML/MIN (>=60); GFR NON AFRICAN AMERICAN 104 ML/MIN (>=60); GLUCOSE, SERUM 87 MG/DL (60-99); PHOSPHORUS, SERUM 3.4 MG/DL (2.5-4.5); POTASSIUM, SERUM 3.4 MMOL/L (3.5-5.3); SODIUM, SERUM 147 MMOL/L (135-148)
[2017-03-11 06:08] LABS: BASOPHILS 0.4 %; BASOPHILS ABSOLUTE 0.03 10/3/uL (0.0-0.16); EOSINOPHILS ABSOLUTE 0.31 10/3/uL (0.0-0.53); HEMOGLOBIN 12.5 g/dL (12.0-16.0); IMMATURE GRANULOCYTES 0.4 %; IMMATURE GRANULOCYTES ABSOLUTE 0.03 10/3/uL (0.0-0.11); LYMPHOCYTES ABSOLUTE 0.77 10/3/uL (0.67-4.30); MEAN CORPUS HGB CONC 32.1 g/dL (32.0-36.0); MEAN CORPUSCULAR HEMOGLOB 30.8 pg (26.0-34.0); MEAN CORPUSCULAR VOLUME 96.1 fL (80-100); MONOCYTES 12.5 %; MONOCYTES ABSOLUTE 0.96 10/3/uL (0.21-1.20); NEUTROPHILS 72.7 %; NEUTROPHILS ABSOLUTE 5.59 10/3/uL (2.02-8.40); PLATELET COUNT 193 10/3/uL (150-400); RBC DISTRIBUTION WIDTH 21.2 % (12.0-16.0); RED CELL COUNT 4.06 10/6/uL (4.0-5.6); WHITE BLOOD CELLS 7.7 10/3/uL (4.5-10.5)
[2017-03-11 06:11] LABS: MANUAL DIFF NO %
[2017-03-11 07:11] LABS: POTASSIUM, SERUM 4.1 MMOL/L (3.5-5.3); SODIUM, SERUM 144 MMOL/L (135-148)
[2017-03-11 07:15] LABS: BUN (BLOOD UREA NITROGEN) 8 MG/DL (6-23); CALCIUM, SERUM 7.8 MG/DL (8.5-10.4); CHLORIDE, SERUM 110 MMOL/L (96-112); CO2 (CARBON DIOXIDE) 24 MMOL/L (24-34); CREATININE 0.48 MG/DL (0.55-1.02); GFR AFRICAN AMERICAN 122 ML/MIN (>=60); GFR NON AFRICAN AMERICAN 105 ML/MIN (>=60); GLUCOSE, SERUM 89 MG/DL (60-99); PHOSPHORUS, SERUM 3.5 MG/DL (2.5-4.5)
[2017-03-12 06:56] LABS: BASOPHILS 0.3 %; BASOPHILS ABSOLUTE 0.03 10/3/uL (0.0-0.16); EOSINOPHILS 1.1 %; EOSINOPHILS ABSOLUTE 0.11 10/3/uL (0.0-0.53); HEMOGLOBIN 12.3 g/dL (12.0-16.0); IMMATURE GRANULOCYTES 0.2 %; IMMATURE GRANULOCYTES ABSOLUTE 0.02 10/3/uL (0.0-0.11); LYMPHOCYTES 9.3 %; LYMPHOCYTES ABSOLUTE 0.96 10/3/uL (0.67-4.30); MEAN CORPUS HGB CONC 31.5 g/dL (32.0-36.0); MEAN CORPUSCULAR HEMOGLOB 31.1 pg (26.0-34.0); MEAN CORPUSCULAR VOLUME 98.5 fL (80-100); MEAN PLATELET VOLUME 11.2 fL (9.2-13.0); MONOCYTES ABSOLUTE 1.13 10/3/uL (0.21-1.20); NEUTROPHILS 78.1 %; NEUTROPHILS ABSOLUTE 8.04 10/3/uL (2.02-8.40); PLATELET COUNT 171 10/3/uL (150-400); RBC DISTRIBUTION WIDTH 20.8 % (12.0-16.0); RED CELL COUNT 3.96 10/6/uL (4.0-5.6); WHITE BLOOD CELLS 10.3 10/3/uL (4.5-10.5)
[2017-03-12 07:00] LABS: BUN (BLOOD UREA NITROGEN) 10 MG/DL (6-23); CALCIUM, SERUM 8.2 MG/DL (8.5-10.4); CHLORIDE, SERUM 112 MMOL/L (96-112); CO2 (CARBON DIOXIDE) 23 MMOL/L (24-34); GFR AFRICAN AMERICAN 108 ML/MIN (>=60); GFR NON AFRICAN AMERICAN 93 ML/MIN (>=60); GLUCOSE, SERUM 90 MG/DL (60-99); PHOSPHORUS, SERUM 3.5 MG/DL (2.5-4.5); SODIUM, SERUM 144 MMOL/L (135-148)
[2017-03-12 07:02] LABS: POTASSIUM, SERUM 4.6 MMOL/L (3.5-5.3)
[2017-03-12 07:14] LABS: MANUAL DIFF NO %
[2017-03-12 08:03] LABS: ANISOCYTOSIS 1+ (5-10/OIF) (0-5/OIF); MACROCYTES 1+ (5-10/OIF) (0-5/OIF); PLATELET ESTIMATE ADQ (ADEQUATE)
[2017-03-13 05:53] LABS: BUN (BLOOD UREA NITROGEN) 11 MG/DL (6-23); CALCIUM, SERUM 8.5 MG/DL (8.5-10.4); CHLORIDE, SERUM 106 MMOL/L (96-112); CO2 (CARBON DIOXIDE) 27 MMOL/L (24-34); CREATININE 0.65 MG/DL (0.55-1.02); GFR AFRICAN AMERICAN 110 ML/MIN (>=60); GFR NON AFRICAN AMERICAN 95 ML/MIN (>=60); GLUCOSE, SERUM 87 MG/DL (60-99); POTASSIUM, SERUM 3.7 MMOL/L (3.5-5.3); SODIUM, SERUM 142 MMOL/L (135-148)
[2017-03-13 05:58] LABS: BASOPHILS 0.1 %; BASOPHILS ABSOLUTE 0.02 10/3/uL (0.0-0.16); EOSINOPHILS 0.6 %; EOSINOPHILS ABSOLUTE 0.08 10/3/uL (0.0-0.53); HEMATOCRIT 38.4 % (36.0-48.0); HEMOGLOBIN 12.3 g/dL (12.0-16.0); IMMATURE GRANULOCYTES 0.4 %; IMMATURE GRANULOCYTES ABSOLUTE 0.05 10/3/uL (0.0-0.11); LYMPHOCYTES 4.9 %; LYMPHOCYTES ABSOLUTE 0.67 10/3/uL (0.67-4.30); MEAN CORPUSCULAR HEMOGLOB 31.2 pg (26.0-34.0); MEAN CORPUSCULAR VOLUME 97.5 fL (80-100); MEAN PLATELET VOLUME 11.4 fL (9.2-13.0); MONOCYTES 10.2 %; MONOCYTES ABSOLUTE 1.41 10/3/uL (0.21-1.20); NEUTROPHILS 83.8 %; NEUTROPHILS ABSOLUTE 11.55 10/3/uL (2.02-8.40); PLATELET COUNT 196 10/3/uL (150-400); RBC DISTRIBUTION WIDTH 20.5 % (12.0-16.0); RED CELL COUNT 3.94 10/6/uL (4.0-5.6); WHITE BLOOD CELLS 13.8 10/3/uL (4.5-10.5)
[2017-03-13 06:00] LABS: MANUAL DIFF NO %
[2017-03-14 05:55] LABS: BASOPHILS 0.3 %; BASOPHILS ABSOLUTE 0.02 10/3/uL (0.0-0.16); EOSINOPHILS 2.5 %; HEMATOCRIT 37.9 % (36.0-48.0); HEMOGLOBIN 11.4 g/dL (12.0-16.0); IMMATURE GRANULOCYTES 0.4 %; IMMATURE GRANULOCYTES ABSOLUTE 0.03 10/3/uL (0.0-0.11); LYMPHOCYTES 7.2 %; LYMPHOCYTES ABSOLUTE 0.57 10/3/uL (0.67-4.30); MANUAL DIFF NO %; MEAN CORPUS HGB CONC 30.1 g/dL (32.0-36.0); MEAN CORPUSCULAR HEMOGLOB 29.5 pg (26.0-34.0); MEAN CORPUSCULAR VOLUME 97.9 fL (80-100); MEAN PLATELET VOLUME 11.8 fL (9.2-13.0); MONOCYTES 18.1 %; MONOCYTES ABSOLUTE 1.43 10/3/uL (0.21-1.20); NEUTROPHILS 71.5 %; NEUTROPHILS ABSOLUTE 5.63 10/3/uL (2.02-8.40); PLATELET COUNT 130 10/3/uL (150-400); RBC DISTRIBUTION WIDTH 20.6 % (12.0-16.0); RED CELL COUNT 3.87 10/6/uL (4.0-5.6); WHITE BLOOD CELLS 7.9 10/3/uL (4.5-10.5)
[2017-03-14 05:58] LABS: BUN (BLOOD UREA NITROGEN) 13 MG/DL (6-23); CALCIUM, SERUM 8.3 MG/DL (8.5-10.4); CHLORIDE, SERUM 100 MMOL/L (96-112); CO2 (CARBON DIOXIDE) 27 MMOL/L (24-34); CREATININE 0.72 MG/DL (0.55-1.02); GFR AFRICAN AMERICAN 104 ML/MIN (>=60); GFR NON AFRICAN AMERICAN 90 ML/MIN (>=60); GLUCOSE, SERUM 94 MG/DL (60-99); POTASSIUM, SERUM 3.8 MMOL/L (3.5-5.3); SODIUM, SERUM 138 MMOL/L (135-148)
[2017-03-15 05:42] LABS: BASOPHILS 0.3 %; BASOPHILS ABSOLUTE 0.02 10/3/uL (0.0-0.16); EOSINOPHILS 3.5 %; EOSINOPHILS ABSOLUTE 0.26 10/3/uL (0.0-0.53); HEMATOCRIT 37.2 % (36.0-48.0); HEMOGLOBIN 11.8 g/dL (12.0-16.0); IMMATURE GRANULOCYTES 0.3 %; IMMATURE GRANULOCYTES ABSOLUTE 0.02 10/3/uL (0.0-0.11); LYMPHOCYTES 12.7 %; LYMPHOCYTES ABSOLUTE 0.94 10/3/uL (0.67-4.30); MEAN CORPUSCULAR VOLUME 97.6 fL (80-100); MONOCYTES ABSOLUTE 1.33 10/3/uL (0.21-1.20); NEUTROPHILS 65.2 %; NEUTROPHILS ABSOLUTE 4.82 10/3/uL (2.02-8.40); RBC DISTRIBUTION WIDTH 19.7 % (12.0-16.0); RED CELL COUNT 3.81 10/6/uL (4.0-5.6); WHITE BLOOD CELLS 7.4 10/3/uL (4.5-10.5)
[2017-03-15 05:43] LABS: MANUAL DIFF NO %; MEAN CORPUS HGB CONC 31.7 g/dL (32.0-36.0); PLATELET COUNT 213 10/3/uL (150-400)
[2017-03-15 09:58] LABS: INTERNATIONAL NORMAL RATI 1.2 UNITS (-); PROTIME (NOT ORD) 15.1 SEC (12.0-14.5)
[2017-03-15 09:59] LABS: PARTIAL THROMBO TIME 31.5 SEC (22.5-37.2)
[2017-03-15 10:00] LABS: TOTAL PROTEIN 6.7 G/DL (6.0-8.5)
[2017-03-15 12:19] LABS: BD FL SOURCE (NOT ORD) PLEUTAL
[2017-03-15 12:26] LABS: BF TOTAL CELL CT (NOT ORD 63 /MM3; BODY FLUID RBC (NOT ORD) 2167 /MM3
[2017-03-15 12:31] LABS: GLUCOSE BODY FL (NOT ORD) 100 MG/DL; LDH BODY FLUID (NOT ORD) 126 U/L
[2017-03-15 12:33] LABS: BD FL LYMPH (NOT ORD) 4 %; BF BASO (NOT OF) 0 %; BF LARGE MONONUCLEAR 89 %; BODY FLUID EOS (NOT ORD) 0 %; BODY FLUID SEG (NOT ORD) 7 %
[2017-03-16 09:21] LABS: BASOPHILS 0.4 %; BASOPHILS ABSOLUTE 0.03 10/3/uL (0.0-0.16); EOSINOPHILS 2.5 %; EOSINOPHILS ABSOLUTE 0.17 10/3/uL (0.0-0.53); HEMATOCRIT 35.3 % (36.0-48.0); HEMOGLOBIN 11.6 g/dL (12.0-16.0); IMMATURE GRANULOCYTES 0.4 %; IMMATURE GRANULOCYTES ABSOLUTE 0.03 10/3/uL (0.0-0.11); LYMPHOCYTES 8.2 %; LYMPHOCYTES ABSOLUTE 0.56 10/3/uL (0.67-4.30); MEAN CORPUS HGB CONC 32.9 g/dL (32.0-36.0); MEAN CORPUSCULAR HEMOGLOB 31.9 pg (26.0-34.0); MEAN PLATELET VOLUME 10.7 fL (9.2-13.0); MONOCYTES 17.9 %; MONOCYTES ABSOLUTE 1.22 10/3/uL (0.21-1.20); NEUTROPHILS 70.6 %; NEUTROPHILS ABSOLUTE 4.82 10/3/uL (2.02-8.40); PLATELET COUNT 183 10/3/uL (150-400); RED CELL COUNT 3.64 10/6/uL (4.0-5.6); WHITE BLOOD CELLS 6.8 10/3/uL (4.5-10.5)
[2017-03-16 09:22] LABS: MANUAL DIFF NO %
[2017-03-16 09:37] LABS: ANISOCYTOSIS 1+ (5-10/OIF) (0-5/OIF); PLATELET ESTIMATE ADQ (ADEQUATE)
[2017-03-16 09:38] LABS: GIANT PLATELET RARE; MACROCYTES 1+ (5-10/OIF) (0-5/OIF)
[2017-03-16 10:35] LABS: INTERNATIONAL NORMAL RATI 1.2 UNITS (-); PARTIAL THROMBO TIME 25.2 SEC (22.5-37.2); PROTIME (NOT ORD) 14.6 SEC (12.0-14.5)
[2017-03-16 10:46] LABS: TOTAL PROTEIN 5.8 G/DL (6.0-8.5)
[2017-03-16 10:54] LABS: BD FL SOURCE (NOT ORD) RT PLEURAL
[2017-03-16 11:13] LABS: BF TOTAL CELL CT (NOT ORD 1159 /MM3; BODY FLUID RBC (NOT ORD) 341 /MM3
[2017-03-16 11:16] LABS: GLUCOSE BODY FL (NOT ORD) 99 MG/DL; LDH BODY FLUID (NOT ORD) 189 U/L; PROTEIN BODY FLUID 2.9 G/DL
[2017-03-16 11:20] LABS: BD FL LYMPH (NOT ORD) 64 %; BF BASO (NOT OF) 0 %; BF LARGE MONONUCLEAR 36 %; BODY FLUID EOS (NOT ORD) 0 %; BODY FLUID SEG (NOT ORD) 0 %
== END 2017-03-16 20:47 | disposition hospice, home (50) | DRG 242 ==
LOC: CORLMH 15:23 → CCU 20:48 → 5NO 03-11 16:39
PROVIDERS: Emergency Medicine; Hospitalist; Internal Medicine; Internal Medicine Critical Care Medicine; Physician Assistant Medical; Radiology Radiation Oncology
PROC: 5A1223Z Performance of Cardiac Pacing, Continuous (ICD-10-PCS; principal; 2017-03-06)
PROC: 02HN0JZ Insertion of Pacemaker Lead into Pericardium, Open Approach (ICD-10-PCS; 2017-03-15)
PROC: 0JH604Z Insertion of Pacemaker, Single Chamber into Chest Subcutaneous Tissue and Fascia, Open Approach (ICD-10-PCS; 2017-03-15)
PROC: 0W9B3ZZ Drainage of Left Pleural Cavity, Percutaneous Approach (ICD-10-PCS; 2017-03-15)
PROC: 0W993ZZ Drainage of Right Pleural Cavity, Percutaneous Approach (ICD-10-PCS; 2017-03-16)
DX: I44.2 Atrioventricular block, complete (principal); I46.9 Cardiac arrest, cause unspecified; J96.01 Acute respiratory failure with hypoxia; I74.8 Embolism and thrombosis of other arteries; J91.0 Malignant pleural effusion; C78.7 Secondary malignant neoplasm of liver and intrahepatic bile duct; C78.89 Secondary malignant neoplasm of other digestive organs; E11.42 Type 2 diabetes mellitus with diabetic polyneuropathy; G20 Parkinson's disease; I25.10 Atherosclerotic heart disease of native coronary artery without angina pectoris; I10 Essential (primary) hypertension; E78.00 Pure hypercholesterolemia, unspecified; J44.9 Chronic obstructive pulmonary disease, unspecified; G47.33 Obstructive sleep apnea (adult) (pediatric); E78.5 Hyperlipidemia, unspecified; Z87.891 Personal history of nicotine dependence; Z85.038 Personal history of other malignant neoplasm of large intestine; Z95.5 Presence of coronary angioplasty implant and graft; Z90.49 Acquired absence of other specified parts of digestive tract; Z82.49 Family history of ischemic heart disease and other diseases of the circulatory system; Z83.3 Family history of diabetes mellitus; Z92.21 Personal history of antineoplastic chemotherapy; Z51.5 Encounter for palliative care
CPT/HCPCS: 33210; 36010; 71010; 71020; 71260; 74178; 80048; 80051; 80069; 80076; 81001; 82607; 82746; 82945; 82947; 82962; 83615; 83735; 83880; 84100; 84132; 84145; 84155; 84157; 84439; 84443; 84484; 85025; 85049; 85576; 85610; 85730; 87015; 87040; 87070; 87102; 87116; 87205; 87641; 88112; 88305; 89051; 93005; 93970; 94640; 96365; 96366; 99291; A9270-GY; C1769; C1786; C1894; C1898; C8929; C9113; J0360; J0690; J1170; J1940; J2250; J2370; J2405; J2710; J2795; J2997; J3010; Q9957; Q9967